=== PATIENT | male | born 1945 | race Caucasian/White ===

== ENCOUNTER 2020-10-14 10:00 | Outpatient (RCR) | payer MEDICARE, SELFPAY ==
--- NOTE | 2020-09-17 13:47 | OTOPEVAL ---
OCCUPATIONAL THERAPY INITIAL EVALUATION: 09/17/2020 Thank you for referring Tray Posadas to [facility].? The patient is scheduled to be seen for skilled occupational therapy 2x/week for 4 weeks. Please review, sign, date and return this plan of care IVÁN. I agree with and certify that the following plan of care is medically necessary. 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 Subjective Information Patient reports L hand has Query Text:As Reported By Patient/ always been weaker, but since Family CVA it has become worse with difficulty griping/grasping objects, dropping objects, buttoning shirts, tying shoe laces Prior Level of Function Activity Level (Last 3 Months) Hand Dominance Right Activity of Daily Living Ability Independent Indoor/Home Mobility Independent Community Mobility Independent Stairs Ability Independent Functional Cognition (Planning, Shopping Independent , Taking Medications) Cooking No Cleaning No Laundry Yes Shopping Yes Driving Yes Home Setting Home Type House,Single Level Environmental Barriers Stairs, Greater than 4 Living Situation With Spouse Support Available Local Family Support Mobility Assistive Devices (Used Last 3 None Months) Bathroom Environment Bathtub, Walk-In Bathing Equipment Tub Seat With Back Pain Assessment Timing of Pain Assessment Timing of Pain Assessment Assessment Self Report Self Report Pain Level 0 Pain Score Pain Score 0: Self Report Upper Extremity Range of Motion General Upper Extremity Range of Motion Reason Not Measured WNL/Left,WNL/Right Upper Extremity Muscle Strength Testing General Upper Extremity Strength Reason Not Measured WNL/Right Gross Upper Extremity Strength Comments patient strength on R UE 5/5 Scapular/Shoulder Left Reason Not Measured WNL/Right Shoulder Elevation - Upper Trapezius 4 Good Shoulder Flexion Strength 4 Good S
--- NOTE | 2020-09-17 14:27 | PTOPEVAL ---
PHYSICAL THERAPY EVALUATION/ DISCHARGE 09-16-20 Thank you for referring Tray Posadas to [facility],s/p CVA. With all of the balance and testing, he is WNL and reports at home, is not having any issues or concerns with his balance or stairs. His agrees that his mobility is good. He was educated to gradually increase his activity level as tolerated, allowing for rest periods and monitor fatigue. Please review, sign, date and return this evaluation/ discharge IVÁN. I agree with and certify that the following plan of care is medically necessary. Referring Physician Date Attending Provider: physician not on staff PT Outpatient Evaluation Document 09/17/20 13:35 RADHA (Rec: 09/17/20 14:27 RADHA [id number]) Outpatient Past Medical History Past Medical History Source of Past Medical History Patient Neurological History Hx Neurological Disorders No Significant History Cardiovascular History Hx Hypercholesterolemia Yes: meds Hx Hypertension Yes: meds Respiratory History Hx Respiratory Disorders No Significant History Gastrointestinal History Hx Gastrointestinal Disorders No Significant History Genitourinary History Hx Genitourinary Disorders No Significant History Musculoskeletal History Hx Musculoskeletal Disorders No Significant History Hematological History Hx Hematological Disorders No Significant History Endocrine History Hx Endocrine Disorders No Significant History Other History Hx Cancer Yes: throat- surgery and 30 radiation treatments Evaluation Information Problem Diagnosis CVA Onset August 25, 2020 Subjective Information out of hospital August 31 to Query Text:As Reported By Patient/ home, has not had any [facility] Family therapy; general dr gave pt restriction of no lifting over 25#; Prior Level of Function Activity Level (Last 3 Months) Occupation retired Hand Dominance Right Activity of Daily Living Ability Independent Indoor/Home Mobility Independent Community Mobility Independent Stairs Ability Independent Functional Cognition (Planning, Shopping Independent , Taking Medications) Cooking Yes Cleaning Yes Laundry Yes Shopping Yes Driving Yes Home Setting Home Type House,Multiple Levels Living Situation With Spouse Mobility Assistive Devices (Used Last 3 None Months) Comments Additional Prior Level of Function active lifestyle, did yard Comments work with push mower, took about 45-60 minutes to
--- NOTE | 2020-10-14 10:33 | OTOPEVAL ---
OCCUPATIONAL THERAPY RE-EVALUATION AND D/C SUMMARY 10/14/20 Patient presents for OT evaluation today following 4 weeks of outpatient OT. He has progressed to normal left UE strength. He continues to have fine motor coordination deficits in the left hand, however his coordination has made excellent improvements since the start of care. At this the time the patient is independent with all materials and is in agreement with discharge. Thank you for referring Tray Posadas to [facility]. Please review, sign, date and return this D/C Summary IVÁN. I agree with and certify that the following plan of care is medically necessary. Referring Physician Date Referring Provider: KYLE Caal *OT Outpatient Evaluation Start: 09/17/20 12:36 Evaluation Information Problem Diagnosis CVA Onset August 25, 2020 Additional Evaluation Detail Patient has participated in 8 OT session since his initial eval on 09/17/20. OT has been focusing on gross left UE strengthening and left hand coordination. Subjective Information Tray reports improved use of Query Text:As Reported By Patient/ his left arm. He notes Family improved ability to button a shirt, improved ability to complete serial opposition, and reports less instances of dropping items with the left hand. States, I'm getting better, but it's not fast . Pain Assessment Timing of Pain Assessment Timing of Pain Assessment Re-assessment Self Report Self Report Pain Level 0 Pain Score Pain Score 0: Self Report Upper Extremity Range of Motion General Upper Extremity Range of Motion Reason Not Measured WNL/Left,WNL/Right Gross Upper Extremity Range of Motion Bilat UE active ROM is Comments symmetrical. Upper Extremity Muscle Strength Testing Scapular/Shoulder Left Shoulder Elevation - Upper Trapezius 4+ Good + Scapular Retraction - Middle Trapezius 4+ Good + Shoulder Flexion Strength 4 Good Shoulder Extension Strength 4+ Good + Shoulder Abduction Strength 4 Good Shoulder Adduction Strength 4+ Good + Shoulder Horizontal Abduction Strength 4 Good Shoulder Horizontal Adduction Strength 4 Good Elbow/Forearm Left Elbow Flexion Strength 4+ Good + Elbow Extension Strength 4+ Good + Forearm Pronation Strength 5 Normal Forearm Supination Strength 5 Normal Wrist Strength Left Wrist Flexion Strength 5 Normal Wrist Extension Strength 5 Normal Hand Retail Performance Coach/Pinch Strength Assessment Hand Left Retail Performance Coach Strength (lbs) 63 Lateral Pinch Strength (lbs) 13 Palmar Pinch Strength (lbs)
== END 2020-10-14 11:03 | disposition home or self-care (01) ==
LOC: ANHOT 10:00
PROVIDERS: PCP Family Medicine Adolescent Medicine; Visit Provider Family Medicine Adolescent Medicine
DX: I69.322 Dysarthria following cerebral infarction (principal); I69.354 Hemiplegia and hemiparesis following cerebral infarction affecting left non-dominant side
CPT/HCPCS: 97110; 97161; 97165; 97530

== ENCOUNTER 2020-12-22 08:43 | Outpatient (CLI) | payer MEDICARE, SELFPAY ==
--- NOTE | ~2020-12-22 | XR_ITS ---
EXAMINATION: XR barium swallow modified DATE: 12/22/2020 09:49 INDICATION: Dysphagia, history of tonsil cancer TECHNIQUE: Modified barium esophagram was performed by myself to administered fluoroscopy, in conjun ction with speech pathologist who administered barium in varying consistencies as per speech patholog ist documentation. This was recorded on tape. A single fluoroscopic spot image was recorded. The DAP for this procedure was 3.013 Gycm2. Fluoroscopy exposure time was 4.2 minutes. FINDINGS: Oral stage: Adequate function. Pharyngeal phase: Adequate function. Laryngeal penetration: Trace. Aspiration: None. Laryngeal sensitivity: Present. IMPRESSION: Laryngeal penetration without evidence of aspiration. Please refer to speech pathologist findings and specific feeding recommendations. Reviewed, dictated and finalized at location A.
--- NOTE | 2020-12-23 15:06 | STOPEVAL ---
MODIFIED BARIUM SWALLOW EVALUATION: Thank you for referring Tray Posadas to [facility].? Attending Provider: Harpal Ramirez MD fax #: [phone] Outpatient Past Medical History Past Medical History Source of Past Medical History Patient Neurological History Hx Cerebrovascular Accident (CVA) Yes: 08/25/20 Cardiovascular History Hx Hypercholesterolemia Yes: meds Hx Hypertension Yes: meds Respiratory History Hx Respiratory Disorders No Significant History Gastrointestinal History Hx Gastrointestinal Disorders No Significant History Genitourinary History Hx Genitourinary Disorders No Significant History Musculoskeletal History Hx Musculoskeletal Disorders No Significant History Hematological History Hx Hematological Disorders No Significant History Endocrine History Hx Endocrine Disorders No Significant History Other History Hx Cancer Yes: throat- surgery and 30 radiation treatments Hx Radiation Therapy Yes Evaluation Information Previous Treatments Previous Treatments For This Problem MBS completed in August when admitted to [facility] for the CVA Modified Barium Swallow Evaluation Recent Swallowing History Reports Dysphagia Yes: dry food catches in throat; pt denied choking History of Dysphagia No Other Factors Impacting Dysphagia None History of Pneumonia No Reported Difficult Consistencies Solids Intake Method Prior to Swallow Oral Evaluation Diet Prior to Swallow Evaluation Regular, Level 7 Liquid Consistency Prior to Swallow Thin (0) Evaluation Consistency Thin Uncontrolled 2 Method of Presentation Straw Oral Preparatory Symptoms Within Functional Limits Oral Phase Symptoms Within Functional Limits Pharyngeal Phase Symptoms Bony Protuberance,Laryngeal Penetration,Reduced Laryngeal Elevation,Reduced Lingual Pressure,Residue in [place] ,Residue/Pyriform Sinus Severity of Vallecular Residue Moderate - 25-50 % Epiglottic Ligament Covered Severity of Pyriform Sinus Residue Moderate - 25-50 % Up Wall to Half Full 8 Point Laryngeal Penetration-Aspiration Material Enters Airway, Scale Remains Above Vocal Folds, and is Not Ejected Pharyngeal Phase Comments Pt was cued to dry swallow in order to clear the residual; the residual was cleared to a mild degree. Laryngeal penetration occurred after the swallow. No aspiration
== END 2020-12-22 08:44 | disposition home or self-care (01) ==
LOC: ANHIMG 08:49
PROVIDERS: PCP Family Medicine Adolescent Medicine; Visit Provider Family Medicine Adolescent Medicine
DX: R13.10 Dysphagia, unspecified (principal)
CPT/HCPCS: 92611

== ENCOUNTER 2021-01-15 08:00 | Outpatient (RCR) | payer MEDICARE, SELFPAY ==
--- NOTE | 2021-01-12 15:25 | STOPEVAL ---
SPEECH THERAPY INITIAL EVALUATION: Thank you for referring Tray Posadas to [facility][Note 3].? The patient is scheduled to be seen for therapy 1-2x/week for 4 weeks. Please review, sign, date and return this plan of care IVÁN. I agree with and certify that the following plan of care is medically necessary. Referring Physician Date Attending Provider: Harpal Ramirez MD FAX: [phone] Outpatient Past Medical History Past Medical History Source of Past Medical History Recalled from Previous Visit, Confirmed with Patient/Family Neurological History Hx Cerebrovascular Accident (CVA) Yes: 08/25/20 Cardiovascular History Hx Hypercholesterolemia Yes: meds Hx Hypertension Yes: meds Hx Other Cardiac Disorders Yes: also takes a baby aspirin Respiratory History Hx Respiratory Disorders No Significant History Gastrointestinal History Hx Gastrointestinal Disorders No Significant History Genitourinary History Hx Genitourinary Disorders No Significant History Musculoskeletal History Hx Musculoskeletal Disorders No Significant History Hematological History Hx Hematological Disorders No Significant History Endocrine History Hx Endocrine Disorders No Significant History HEENT History Hx Cataracts Yes: the beginning of cataracts Integumentary History Hx Skin Disorders No Significant History Reproductive History Hx Reproductive Disorders No Significant History Psychosocial History Hx Psychiatric Disorders No Significant History Other History Hx Cancer Yes: throat- surgery & 30 radiation treatments in 2008 Hx Radiation Therapy Yes Evaluation Information Problem Diagnosis dysphagia Onset swallowing difficulty worsened after the CVA Additional Evaluation Detail Pt underwent throat surgery in 2008 then had 30 radiation treatments; removed the 1 cancerous tonsil and a small portion of tongue. Subjective Information pleasant and cooperative; 100% Query Text:As Reported By Patient/ intelligible speech; I can Family eat anything and drink anything c/o only minimal sensation that foods get stuck . I don't choke but I can get more phelgm that accumulates since the surgery in 2008 . Diagnostic Tests Other Tests For This Problem Yes: OP modified barium swallow on December 22, 2020 Previous Treatments Previous Treatments For This Problem No previous ST. Prior Level of Function Activity Level (Last 3 Months) Occupation
--- NOTE | 2021-02-11 15:35 | PCSTNOTE ---
SPEECH THERAPY DISCHARGE: Attending Provider: Harpal Ramirez MD Patient:Tray Posadas Date of :1945 Patient has not returned for any further treatments since 01/15/2021, therefore he will be discharged at this time. Patient?s initial visit was on 01/12/2021 08:30 and he had a total of 2 visits. The goals have been partially met. Thank you for referring this patient to [facility]. Please review, sign, date and return this discharge summary IVÁN. I have been updated about the patient's current status and I agree with discharge from the above service at this time. Referring Physician Date
== END 2021-02-12 11:49 | disposition home or self-care (01) ==
LOC: ANHST 08:00
PROVIDERS: PCP Family Medicine Adolescent Medicine; Visit Provider Family Medicine Adolescent Medicine
DX: R13.10 Dysphagia, unspecified (principal)
CPT/HCPCS: 92526; 92610